=== PATIENT | female | born 1995 | race Caucasian/White ===

== ENCOUNTER 2018-06-10 16:57 | Emergency (ER) | payer OTHER ==
[2018-06-10 17:25] VITALS: BP 127/76; PULSE 92; TEMP 98.2; BMI 25.8
[2018-06-10] MEDS ORDERED: ACETAMINOPHEN 325 MG TABLET (FP) PO ONE (18:41)
--- NOTE | 2018-06-10 18:42 | PDOC ---
History of Present Illness - General Chief Complaint: Injury Stated Complaint: Injury Time Seen by Provider: 06/10/18 18:21 History Source: Patient Exam Limitations: No Limitations Past History - Travel Traveled outside of the country in the last 30 days: No Close contact w/someone who was outside of country & ill: No - Past Medical History Allergies/Adverse Reactions: Allergies Allergy/AdvReac Type Severity Reaction Status Date / Time No Known Allergies Allergy Verified 06/10/18 17:23 Home Medications: Ambulatory Orders Ketorolac Tromethamine [Sprix] 1 each NS BID #1 bottle 06/10/18 COPD: No GI Disorders: No Hypercholesterolemia: No - Surgical History Cardiac Surgery: No Cholecystectomy: No - Immunization History Immunization Up to Date: No - Suicide/Smoking/Psychosocial Hx Smoking History: Never smoked Have you smoked in the past 12 months: No Information on smoking cessation initiated: No Hx Alcohol Use: No Drug/Substance Use Hx: No Review of Systems - Review of Systems Able to Perform ROS?: Yes Comments:: 06/10/18 18:40 CONSTITUTIONAL: Absent: fever, chills, diaphoresis, generalized weakness, malaise, loss of appetite HEENT: Absent: rhinorrhea, nasal congestion, throat pain, throat swelling, difficulty swallowing, mouth swelling, ear pain, eye pain, visual Changes MUSCULOSKELETAL: Present: R foot pain Absent: myalgia, joint swelling SKIN: Absent: rash, itching, pallor NEUROLOGIC: Absent: headache, focal weakness or paresthesias, dizziness, unsteady gait, seizure, mental status changes, bladder or bowel incontinence PSYCHIATRIC: Absent: anxiety, depression, suicidal or homicidal ideation, hallucinations. Is the patient limited Sinhala proficient: No *Physical Exam - Vital Signs Last Vital Signs Temp Pulse Resp BP Pulse Ox 98.2 F 92 H 18 127/76 100 06/10/18 17:21 06/10/18 17:21 06/10/18 17:21 06/10/18 17:21 06/10/18 17:21 - Physical Exam Comments: 06/10/18 18:45 GENERAL: Well developed, well nourished. Awake and alert. No acute distress. HEENT: Normocephalic, atraumatic. PERRLA, EOMI. No conjunctival pallor. Sclera are non- icteric. Moist mucous membranes. Oropharynx is clear. NECK: Supple. Full ROM. No midline tenderness. No thyromegaly. No lymphadenopathy. MUSCULOSKELETAL TTP of the distal R first toe with associated bruising. Normal range of motion at all joints. No bony deformities or tenderness. No CVA tenderness. EXTREMITIES: No cyanosis. No clubbing. No edema. No calf tenderness. SKIN: Warm and dry. Normal capillary refill. No rashes. No jaundice. NEUROLOGICAL: Alert, awake, appropriate. Cranial nerves 2-12 intact. No deficits to light touch and temperature in face, upper extremities and lower extremities. No motor deficits in the in face, upper extremities and lower extremities. Normoreflexic in the upper and lower extremities. Normal speech. Toes are down- going bilaterally. Gait is normal without ataxia. PSYCHIATRIC: Cooperative. Good eye contact. Appropriate mood and affect. Medical Decision Making - Medical Decision Making 06/10/18 18:49 the patient is a 22-year-old female with no past medical history who presents to the emergency department today for right toe pain. Patient is that the [email or web address]. She states that she was trying to lift a 300 pound tire when it slipped and fell onto her right foot. She also states that later during the training she was climbing up a 5 foot wall slipped and fell. She states she hit the back of her head on the ground. Denies headaches, loss of consciousness, lightheadedness and dizziness. A/P: Right toe pain, evaluation for head injury X-ray of the right toe obtained, per radiology no fractures identified. Head CT obtained given fall of 5 feet. negative No acute finding on CT. Discharge home on rest for physical activity until Thursday. Podiatry follow-up given. I discussed the physical exam findings, ancillary test results and final diagnoses with the patient. I answered all of the patient's questions. The patient was satisfied with the care received and felt comfortable with the discharge plan and treatment plan. The Patient agrees to follow up with the primary care physician/specialist within 24-72 hours. Return precautions were given. *DC/Admit/Observation/Transfer Diagnosis at time of Disposition: Head injury Qualifiers: Encounter type: initial encounter Qualified Code(s): S09.90XA - Unspecified injury of head, initial encounter Injury of toe on right foot Qualifiers: Encounter type: initial encounter Qualified Code(s): S99.921A - Unspecified injury of right foot, initial encounter - Discharge Dispostion Disposition: HOME Condition at time of disposition: Stable - Prescriptions Prescriptions: Ketorolac Tromethamine [Sprix] 1 each NS BID #1 bottle - Referrals Referrals: Rolf Can MD [Staff Physician] - - Patient Instructions Printed Discharge Instructions: DI for Closed Head Injury, DI for Toe Sprain Additional Instructions: Your head CT was normal today Your x-ray of your foot was negative for fractures Keep icing the foot, keep it elevating when resting Use the sprix twice a day as needed for pain Follow up with podietry for evaluation of the foot Return to the ED for any new or worsening symptoms - Post Discharge Activity Forms/Work/School Notes: Back to Work
[2018-06-10] MEDS ORDERED: ACETAMINOPHEN 325 MG TABLET (FP) ONE (18:46)
== END 2018-06-10 21:12 | disposition home or self-care (01) ==
LOC: JERFT 16:57
DX: S09.8XXA Other specified injuries of head, initial encounter (principal); S99.921A Unspecified injury of right foot, initial encounter; W18.39XA Other fall on same level, initial encounter; Y35.891A Legal intervention involving other specified means, law enforcement official injured, initial encounter; Y93.89 Activity, other specified; Y92.89 Other specified places as the place of occurrence of the external cause; Y99.0 Civilian activity done for income or pay
CPT/HCPCS: 70450-TC; 73630-TC-RT-FY; 84703; 99281-25

== ENCOUNTER 2020-04-15 00:56 | Emergency (ER) | payer OTHER ==
[2020-04-15 01:01] VITALS: BMI 24.9
[2020-04-15 01:05] VITALS: BP 124/87; PULSE 87; TEMP 98.9
== END 2020-04-15 01:14 | disposition home or self-care (01) ==
LOC: FER 00:56
DX: Z77.21 Contact with and (suspected) exposure to potentially hazardous body fluids (principal)
CPT/HCPCS: 99283-25